=== PATIENT | male | born 1990 | race Two or more races ===

== ENCOUNTER 2016-03-09 15:33 | Emergency (ER) | payer SELFPAY ==
[~2016-03-09] VITALS: Ht 182.9 cm; Wt 90.7 kg
[2016-03-09 16:56] VITALS: BP 152/100
[2016-03-09 17:33] LABS: Basophils # (auto) 0 uL; Basophils % (auto) 0.4 % (0.0-2.0); Eosinophils # (auto) 0 uL; Eosinophils % (auto) 0.2 % (0.0-7.0); Hematocrit 49.1 % (41.0-53.0); Hemoglobin 16.6 g/dL (13.5-17.5); Lymphocytes # (auto) 1.7 uL; Lymphocytes % (auto) 16.9 % (10.0-50.0); Mean Corpuscular Hemoglobin 30.1 pg (28.0-32.0); Mean Corpuscular Hgb Conc. 33.8 g/dL (32.0-36.0); Mean Platelet Volume 8.8 fL (7.4-10.4); Monocytes # (auto) 0.9 uL; Monocytes % (auto) 9.6 % (0.0-12.0); Neutrophils # (auto) 7.2 uL; Neutrophils % (auto) 72.9 % (37.0-80.0); Platelet Count (auto) 252 10^3/uL (140-450); Red Cell Distribution Width 12.2 % (11.6-16.0); White Blood Cell 9.9 10^3/uL (4.4-10.8)
[2016-03-09 17:57] LABS: Albumin 4.8 g/dL (3.4-5.0); Alkaline Phosphatase 89 U/L (45-117); Anion Gap 9 (5-15); Aspartate Aminotransferase 31 U/L (15-37); BUN/Creatinine Ratio 16.3; Bilirubin, Total 1.7 mg/dL (0.2-1.0); Blood Urea Nitrogen 16 mg/dL (7-18); Calcium 9.7 mg/dL (8.5-10.1); Carbon Dioxide 27 mmol/L (21-32); Chloride 97 mmol/L (98-107); GFR African American 120 mL/min; GFR Non-African American 99 mL/min; Glucose 102 mg/dL (74-106); Potassium 3.8 mmol/L (3.5-5.1); Sodium 133 mmol/L (136-145); Total Protein 8.5 g/dL (6.4-8.2)
== END 2016-03-09 22:53 | disposition left against medical advice (07) ==
LOC: ER 15:45
DX: R42 Dizziness and giddiness (principal); Z53.21 Procedure and treatment not carried out due to patient leaving prior to being seen by health care provider
CPT/HCPCS: 36415; 70450; 80053; 80320; 82962; 85025

== ENCOUNTER 2016-03-11 16:09 | Emergency (ER) | payer SELFPAY ==
[~2016-03-11] VITALS: Ht 177.8 cm; Wt 95.3 kg
[2016-03-11 16:24] VITALS: BP 145/78
== END 2016-03-11 19:54 | disposition left against medical advice (07) ==
LOC: EDBD 16:09 → ER 16:11
DX: F32.9 Major depressive disorder, single episode, unspecified (principal); F20.9 Schizophrenia, unspecified; F12.10 Cannabis abuse, uncomplicated; F03.90 Unspecified dementia, unspecified severity, without behavioral disturbance, psychotic disturbance, mood disturbance, and anxiety; F17.210 Nicotine dependence, cigarettes, uncomplicated; Z59.0 Homelessness; Z53.29 Procedure and treatment not carried out because of patient's decision for other reasons